=== PATIENT | female | born 1940 | race Caucasian/White ===

== ENCOUNTER → 2023-05-16 | Outpatient (CLI) | payer MEDICARE, BC, SELFPAY ==
[2023-05-16 12:45] LABS: Absolute Lymphocyte Count 1.55 X10^3/uL (0.83-4.51); Absolute Neutrophil Count 4.7 X10^3/uL (2.0-7.7); Basophil# 0.02 X10^3/uL; Basophil% 0.3 % (0-1); Eosinophil# 0.11 X10^3/uL; Eosinophils% 1.6 % (0-5); Hematocrit 41.6 % (37-47); Hemoglobin 13.1 g/dL (12.0-15.0); Lymphocyte # 1.55 X10^3/ul (0.83-4.51); Mean Corp Hgb Conc 31.5 g/dL (32-36); Mean Corpuscular Volume 95.2 fL (81-99); Mean Platelet Vol. 9.7 fl (6.2-12.0); Monocyte# 0.63 X10^3/uL; Monocyte% 8.9 % (0-10); NRBC Flagged by Analyzer 0 % (0-5); Neutrophil # 4.71 X10^3/uL (2.7-7.7); Neutrophil % 66.8 % (47-70); Platelet Count 284 K/mm3 (150-450); RBC Distribution Width CV 12.9 % (11.6-14.6); RBC Distribution Width SD 45.8 fl (35.1-43.9); Red Blood Count 4.37 M/mm3 (4.2-5.4); White Blood Count 7.1 K/mm3 (4.4-11.0)
[2023-05-16 13:18] LABS: AST(SGOT) 15 U/L (15-37); Alanine Aminotransfer ALT/SGPT 21 U/L (13-56); Albumin, Serum 3.7 g/dL (3.2-5.0); Alkaline Phosphatase 78 U/L (45-117); Anion Gap 6 (5-15); BUN 11 mg/dL (7-18); BUN/Creat Ratio 15.6 RATIO (10-20); Chloride 103 mmol/L (98-107); Cholesterol 151 mg/dL (200); EST Glomerular Filtration Rate 84 mL/min (>60); Est Glom Filt Rate - Afr Amer 102 mL/min (>60); Globulin 3.6 g/dL (2.2-4.2); Glucose 109 mg/dL (74-106); High Density Lipoprotein 52 mg/dL; Potassium 3.9 mmol/L (3.5-5.1); Protein, Total 7.3 g/dL (6.4-8.2); Sodium Level 136 mmol/L (136-145); Thyroid Stim Hormone (TSH) 0.26 uIU/mL (0.358-3.74); Triglycerides 215 mg/dL; Very Low Density Lipoprotein 43 mg/dL (5-40)
== END | disposition home or self-care (01) ==
LOC: MFPLAB 10:26
PROVIDERS: PCP Family Medicine; Visit Provider Family Medicine
DX: R73.09 Other abnormal glucose (principal); E78.00 Pure hypercholesterolemia, unspecified; E03.9 Hypothyroidism, unspecified
CPT/HCPCS: 36415; 80053; 80061; 83036; 84443; 85025

== ENCOUNTER → 2023-06-13 | Outpatient (CLI) | payer MEDICARE, BC, SELFPAY ==
--- NOTE | 2023-06-13 07:40 | CT_ITS ---
STUDY: CT CHEST WITH CONTRAST REASON FOR EXAM: Female, 83 years old. Nodules noncalcified on both lungs RADIATION DOSAGE (If Supplied By Facility): CTDIvol = ( 12.15 ) mGy, DLP = ( 282.76 ) mGycm TECHNIQUE: Transaxial imaging was performed following intravenous administration of IV 100mL Isovue-300. Multiplanar coronal and sagittal images were reformatted. Individualized dose optimization techniques were used for this CT. COMPARISON: Comparison is made with prior outside examination dated January 10, 2023. FINDINGS: CHEST Stable small benign-appearing bilateral axillary lymph nodes. Stable 2.5 mm noncalcified nodule in the peripheral lateral aspect of the lingular segment of the left upper lobe as seen on axial image #77. There is no demonstrated pleural abnormality. There are mild calcifications of the coronary arteries. Normal mediastinum. Normal hilar regions. Normal unenhanced pulmonary arteries. There is atherosclerotic calcification of the aortic arch with tortuosity and elongation of the aortic arch and descending thoracic aorta. There are multi-level degenerative changes of the thoracic spine. There is no demonstrated abnormality of the visualized upper abdomen. CT/Chest WITH Contrast IMPRESSION: Stable 2.5 mm noncalcified nodule in the peripheral lateral aspect of the lingular segment of the left upper lobe. 12 month follow-up is recommended. Electronically Signed: Bora Rider MD at 15:14 EDT ,
--- NOTE | 2023-06-14 09:50 | PFT ---
INTRODUCTION: The patient is an 83-year-old female who presents for pulmonary function studies secondary to a diagnosis of abnormal lung findings. Respiratory therapy reported good patient effort. Bronchodilators were used during testing. INTERPRETATION: Forced expiration spirometry demonstrates no evidence of a large airways obstructive ventilatory defect. There was no significant response to aerosolized bronchodilators. Spirograms are of good quality and plateau normally. Body plethysmography was performed and revealed lung volumes to be within normal limits. Diffusing capacity by single breath CO was reduced to 56% of predicted. IMPRESSION: Isolated moderate reduction in diffusing capacity.
== END | disposition home or self-care (01) ==
LOC: CT 07:35
PROVIDERS: PCP Family Medicine; Referring Provider Family Medicine; Visit Provider Family Medicine
DX: R06.02 Shortness of breath (principal)
CPT/HCPCS: 71260; 94060; 94726; 94729; Q9967

== ENCOUNTER → 2023-08-15 | Outpatient (CLI) | payer MEDICARE, BC, SELFPAY ==
[2023-08-15 12:56] LABS: T4 Free Direct 1.14 ng/dL (0.76-1.46); Thyroid Stim Hormone (TSH) 0.27 uIU/mL (0.358-3.74)
== END | disposition home or self-care (01) ==
LOC: MFPLAB 10:27
PROVIDERS: PCP Family Medicine; Visit Provider Family Medicine
DX: E03.9 Hypothyroidism, unspecified (principal)
CPT/HCPCS: 36415; 84439; 84443

== ENCOUNTER → 2023-09-06 | Outpatient (CLI) | payer MEDICARE, BC, SELFPAY ==
--- NOTE | 2023-09-06 16:30 | STRESSREP ---
Stress Test Report Exercise myocardial perfusion stress test. 83-year-old lady with a history of coronary calcification by CTA Stress protocol: Resting EKG demonstrates normal sinus rhythm with a rate of 67 bpm resting blood pressure is 134/86 mmHg. The patient exercised according to the regular Antolin protocol for a total duration of 3 minutes and 15 seconds attaining a maximum heart rate of 122 bpm which was 89% of maximum predicted heart rate; the maximum workload was 5.1 metabolic equivalents. At rest there were no ST or T wave changes noted to suggest ischemia and at peak exercise upsloping ST changes only were noted which did not meet the criteria for ischemia. No clinical angina was noted the test was terminated due to the target heart rate being achieved/fatigue. The peak blood pressure was 160/84 mmHg. Rate-pressure product was 17,400. Myocardial perfusion protocol. 10.8 mCi of technetium 99m sestamibi was injected at rest. The patient exercised according to regular Antolin protocol for total duration of 3 minutes and 15 seconds and at peak exercise 31.9 mCi of technetium 99m sestamibi was injected stress images were obtained stress and rest images were reconstructed in comparing the short axis vertical long and horizontal long axis. Gated images were also obtained. Perfusion SPECT analysis: Review of the stress images demonstrate normal uptake of tracer noted in all areas of the myocardium. The resting images similarly demonstrate normal uptake of tracer noted in all areas of the myocardium. No areas of reversibility are noted to suggest ischemia no previous infarct was noted. Gated SPECT analysis: The gated ejection fraction is 86%. Conclusion: Normal exercise myocardial perfusion stress test at a low to moderate workload Preserved ejection fraction. The low workload could affect sensitivity for detection of ischemia
== END | disposition home or self-care (01) ==
LOC: CVS 07:11
PROVIDERS: PCP Family Medicine; Referring Provider Internal Medicine Cardiovascular Disease; Visit Provider Internal Medicine Cardiovascular Disease
DX: I25.10 Atherosclerotic heart disease of native coronary artery without angina pectoris (principal); I10 Essential (primary) hypertension
CPT/HCPCS: 78452; 93017; A9500; A4216

== ENCOUNTER → 2023-09-08 | Outpatient (CLI) | payer MEDICARE, BC, SELFPAY ==
--- NOTE | 2023-09-08 14:12 | CT_ITS ---
EXAM: CT ANGIOGRAPHY HEAD AND NECK WITHOUT AND WITH INTRAVENOUS CONTRAST CLINICAL INDICATION: R ICA stenosis TECHNIQUE: Lummi of [place]/head and neck CT angiography protocol performed without and with intravenous contrast. This CT exam was performed using one or more of the following dose reduction techniques: automated exposure control, adjustment of the mA and/or kV according to patient size, and/or use of iterative reconstruction technique. MIP reconstructed images were created and reviewed. CONTRAST: 100 cc of Isovue-370 IV. RADIATION DOSE: CTDIvol = 29.33 mGy, DLP = 1411.38 mGy-cm COMPARISON: No relevant prior studies available. FINDINGS: HEAD: RIGHT ANTERIOR CEREBRAL ARTERY: Unremarkable. No occlusion or significant stenosis. Anterior communicating artery is present. No aneurysm. RIGHT MIDDLE CEREBRAL ARTERY: Unremarkable. No occlusion or significant stenosis. No aneurysm. RIGHT POSTERIOR CEREBRAL ARTERY: Unremarkable. No occlusion or significant stenosis. No aneurysm. RIGHT INTRACRANIAL INTERNAL CAROTID ARTERY: Mild atherosclerotic changes right intracavernous internal carotid artery without hemodynamic significant stenosis. No dissection or occlusion. RIGHT INTRACRANIAL VERTEBRAL ARTERY: Unremarkable. No significant stenosis. No dissection or occlusion. LEFT ANTERIOR CEREBRAL ARTERY: Unremarkable. No occlusion or significant stenosis. No aneurysm. LEFT MIDDLE CEREBRAL ARTERY: Unremarkable. No occlusion or significant stenosis. No aneurysm. LEFT POSTERIOR CEREBRAL ARTERY: Unremarkable. No occlusion or significant stenosis. No aneurysm. LEFT INTRACRANIAL INTERNAL CAROTID ARTERY: Mild atherosclerotic changes left intracavernous internal carotid artery without hemodynamic significant stenosis. No dissection or occlusion. LEFT INTRACRANIAL VERTEBRAL ARTERY: Unremarkable. No significant stenosis. No dissection or occlusion. BASILAR ARTERY: Unremarkable. No occlusion or significant stenosis. No aneurysm. OTHER VASCULATURE: No vascular malformation. BRAIN AND EXTRA-AXIAL SPACES: Mild generalized atrophy. Mild low density bilaterally in the deep white matter. No intra- or extra-axial hemorrhage. No evidence of acute infarct. No intracranial mass or mass effect. There is preservation of the dixon/white matter interface. Posterior fossa structures are unremarkable. No hydrocephalus. Basal cisterns are patent. SINUSES: Unremarkable as visualized. Clear. MASTOID AIR CELLS: Unremarkable as visualized. Clear. ORBITS: Visualized globes, extraocular muscles, optic nerves and retrobulbar fat appear unremarkable. NECK: RIGHT COMMON CAROTID ARTERY: Unremarkable. No significant stenosis. No dissection or occlusion. RIGHT EXTRACRANIAL INTERNAL CAROTID ARTERY: Severe atherosclerotic disease right carotid bulb and proximal right internal carotid artery with a 70% diameter stenosis. No dissection or occlusion. RIGHT EXTERNAL CAROTID ARTERY: Unremarkable. No occlusion. RIGHT EXTRACRANIAL VERTEBRAL ARTERY: Unremarkable. No significant stenosis. No dissection or occlusion. LEFT COMMON CAROTID ARTERY: Unremarkable. No significant stenosis. No dissection or occlusion. LEFT EXTRACRANIAL INTERNAL CAROTID ARTERY: Moderate atherosclerotic calcifications left carotid bulb and proximal left internal carotid artery with an approximate 25% diameter stenosis. No dissection or occlusion. LEFT EXTERNAL CAROTID ARTERY: Unremarkable. No occlusion. LEFT EXTRACRANIAL VERTEBRAL ARTERY: Unremarkable. No significant stenosis. No dissection or occlusion. BRACHIOCEPHALIC AND SUBCLAVIAN ARTERIES: Unremarkable as visualized. No occlusion or significant stenosis. LUNG APICES: Unremarkable as visualized. HEAD and NECK: BONES/JOINTS: Unremarkable. No discrete lytic or blastic abnormalities. SOFT TISSUES: Unremarkable. OTHER FINDINGS: Diffuse degenerative disease in the cervical spine. CAROTID STENOSIS REFERENCE USING NASCET CRITERIA: % ICA stenosis = (1 - narrowest ICA diameter/diameter of distal cervical ICA) x 100. Mild - <50% stenosis. Moderate - 50-69% stenosis. Severe - 70-94% stenosis. Near occlusion - 95-99% stenosis. Occluded - 100% stenosis. CT/CTA Head AND Neck W/ Contrast IMPRESSION: 1. Severe atherosclerotic disease right carotid bulb and proximal right internal carotid artery with a 70% diameter stenosis. 2. Moderate atherosclerotic calcifications left carotid bulb and proximal left internal carotid artery with an approximate 25% diameter stenosis. 3. Mild atherosclerotic changes right intracavernous internal carotid artery without hemodynamic significant stenosis. 4. Mild atherosclerotic changes left intracavernous internal carotid artery without hemodynamic significant stenosis. 5. Mild generalized atrophy. Mild low density bilaterally in the deep white matter. This likely represents chronic small vessel ischemic changes in the deep white matter. Electronically Signed: Bravo Steen MD at 5:42 EST ,
[2023-09-08 14:48] LABS: CREATININE FINGERSTICK < 1.0 mg/dL (0.55-1.02); EGFR FINGERSTICK > 60.0000 mL/min (>60)
== END | disposition home or self-care (01) ==
LOC: CT 14:11
PROVIDERS: PCP Family Medicine; Referring Provider Physician Assistant; Visit Provider Physician Assistant
DX: I65.21 Occlusion and stenosis of right carotid artery (principal)
CPT/HCPCS: 70496; 70498; Q9967

== ENCOUNTER 2023-10-17 10:21 | Inpatient (IN) | payer MEDICARE, BC, SELFPAY ==
[2023-10-06 09:09] LABS: Hemoglobin 13.8 g/dL (12.0-15.0); Mean Corp Hgb Conc 32.9 g/dL (32-36); Mean Corpuscular Hgb 30.9 pg (27.0-32.0); Mean Platelet Vol. 9.2 fl (6.2-12.0); Platelet Count 302 K/mm3 (150-450); RBC Distribution Width CV 12.7 % (11.6-14.6); RBC Distribution Width SD 43.4 fl (35.1-43.9); Red Blood Count 4.47 M/mm3 (4.2-5.4); White Blood Count 5.8 K/mm3 (4.4-11.0)
[2023-10-06 10:35] LABS: Anion Gap 9 (5-15); BUN 11 mg/dL (7-18); BUN/Creat Ratio 16.4 RATIO (10-20); Calcium,Total 9.2 mg/dL (8.5-10.1); Chloride 102 mmol/L (98-107); Creatinine, Serum 0.67 mg/dL (0.55-1.02); EST Glomerular Filtration Rate 89 mL/min (>60); Est Glom Filt Rate - Afr Amer 108 mL/min (>60); Glucose 110 mg/dL (74-106); Potassium 4.3 mmol/L (3.5-5.1); Sodium Level 136 mmol/L (136-145)
[2023-10-06 10:51] LABS: Thyroid Stim Hormone (TSH) 0.08 uIU/mL (0.358-3.74)
[2023-10-17] VITALS (26 sets, daily range): BP systolic 89–144; BP diastolic 50–91; PULSE 74–101; RESP 12–22; TEMP 36–37.1; O2SAT 87–100; BMI 28.3; BMI 29.1
[2023-10-17] MEDS: Lactated Ringers 1,000 ML 15 ML IV (07:24)
--- NOTE | 2023-10-17 08:49 | HP.PCM_ITS ---
HPI - General HPI Narrative SCOTTY LOERA, is a 83 F who presents with asymptomatic right carotid stenosis. [facility] Medical History Alcohol use Anxiety Arthritis Cardiology follow-up encounter Essential (primary) hypertension Generalized anxiety disorder GERD (gastroesophageal reflux disease) High cholesterol History of echocardiogram History of irregular heartbeat History of stress test Hypercholesterolemia Hypothyroid Migraine headache Thyroid disease Wears glasses Wears partial dentures Home Medications Lactobacillus rhamnosus GG 10 billion cell capsule (Culturelle) 1 cap PO DAILY 07/06/23 [History Last Taken Unknown] cholecalciferol (vitamin D3) 75 mcg (3,000 unit) tablet 5,000 unit PO DAILY 07/06/23 [History Last Taken Unknown] cinnamon bark 500 mg capsule (Cinnamon) 1,000 mg PO DAILY 07/06/23 [History Last Taken Unknown] coenzyme Q10 200 mg capsule (Co Q-10) 200 mg PO DAILY 07/06/23 [History Last Taken Unknown] famotidine 20 mg tablet (Acid Knowledge Engineer (famotidine)) 20 mg PO DAILY 07/06/23 [History Last Taken Unknown] magnesium 200 mg tablet 400 mg PO DAILY 07/06/23 [History Last Taken Unknown] multivitamin 1 tab PO DAILY 07/06/23 [History Last Taken Unknown] vitamin B complex-folic acid 0.4 mg tablet (Super B Maxi Complex) 1 tab PO DAILY 07/06/23 [History Last Taken Unknown] vitamins A,C,Y-awej-kxysed 4,296 mcg-226 mg-90 mg capsule (PreserVision AREDS) 1 cap PO BID 07/06/23 [History Last Taken Unknown] albuterol sulfate 2.5 mg/3 mL (0.083 %) solution for nebulization 2.5 mg continuous nebulization Q8H PRN cough 07/26/23 [History Last Taken Unknown] amitriptyline 10 mg tablet 10 mg PO BID 07/26/23 [History Last Taken Unknown] levothyroxine 88 mcg tablet 88 mcg PO DAILY 07/26/23 [History Last Taken Unknown] rosuvastatin 5 mg tablet 5 mg PO DAILY 08/16/23 [History Last Taken Unknown] perphenazine 2 mg tablet 2 mg PO BID 08/29/23 [History Last Taken Unknown] aspirin 81 mg tablet,delayed release 81 mg PO DAILY 09/14/23 [History Last Taken 10/16/23] rosuvastatin 5 mg tablet 5 mg PO DAILY 09/14/23 [History Last Taken Unknown] ticagrelor 90 mg tablet (Brilinta) 90 mg PO Q12H #60 tabs 09/14/23 [Rx Last Taken 10/17/23] turmeric 100 mg-lyndsey 150 mg-olive 50 mg-oreg 150 mg-capryl capsule cap PO 09/14/23 [History Last Taken Unknown] krill oil 500 mg capsule 500 mg PO DAILY 10/04/23 [History Last Taken Unknown] Allergy/AdvReac Type Severity Reaction Status Date / Time Penicillins Allergy Severe Swelling Verified 10/17/23 07:17 bee venom protein (honey bee) Allergy Swelling Verified 10/17/23 07:17 Family History Grandmother CVA (cerebral vascular accident) Obesity Arthritis Uncle Diabetes Father Cancer Arthritis Obesity Brother Arthritis Alcoholism Surgical History H/O tubal ligation History of cholecystectomy History of hysterectomy Social History Smoking Status: Former smoker ROS Constitutional Constitutional: Denies chills, fever(s), frequent falls, lethargy or weakness Eyes Eyes: Denies blind spots, change in vision or loss of vision ENT HEENT: Denies bleeding gums, hoarseness or sore throat Cardiovascular Cardiovascular: Denies abdominal pain, bluish discoloration of hand/feet, chest pain with activity, claudication, cold extremities, cyanosis, dyspnea on exert ion, erythema on extremities, irregular heart rhythm, leg edema, leg ulcers, numbness in extremities or weakness in extremities Respiratory/Chest Respiratory/Chest: Denies cough, excessive phlegm production, shortness of breath at rest, shortness of breath with exertion or wheezing Gastrointestinal Gastrointestinal: Denies anorexia, change in stool character, constipation, diarrhea, melena or rectal bleeding Genitourinary Genitourinary: Denies dysuria or hematuria Musculoskeletal Musculoskeletal: Denies abnormal gait Integumentary Integumentary: Reports other Details: ; Denies erythema, non-healing lesions or wounds Neurologic Neurologic: Denies abnormal speech, focal weakness, headache(s), loss of vision, numbness, paresthesias or sensory deficit Hematologic/Lymphatic Hematologic/Lymphatic: Denies easy bleeding, easy bruising or lymphadenopathy Vital Signs Vital Signs Vital Signs: 10/17/23 07:18 10/17/23 07:18 Temperature 97.6 F L Temperature Source Temporal Pulse Rate 91 Respiratory Rate 18 Respiratory Pattern Normal Blood Pressure 120/80 Blood Pressure Mean 93 Blood Pressure Source Monitor Blood Pressure Position Semi-Fowlers Blood Pressure Location Left Arm Pulse Ox 99 Oxygen Delivery Method Room Air Weight Weight: 154 lb 12.232 oz Body Mass Index (BMI) 28.3 Results Lab / Micro Data 10/06/23 08:16 10/06/23 08:16 Assessment & Plan Assessment/Plan (1) Carotid artery stenosis, unilateral: PLAN: -TCAR
--- NOTE | 2023-10-17 10:19 | PCM.OPRPT ---
Report of Operation Date of Procedure: 10/17/23 Pre-Operative Diagnosis: right carotid stenosis Post-Operative Diagnosis: same Surgery/Procedure Performed:: right carotid artery stent, trans-carotid Surgeon: Darrin Gaviria Type of Anesthesia: General Drains: 19 Fr SHIRIN Estimated Blood Loss (mL): 10 Description of Procedure: HPI: Patient is an 83-year-old female with asymptomatic severe right internal carotid artery stenosis with a lesion that is particularly lengthy in nature. She is felt to be appropriate for transcarotid artery stenting so she is taken now for elective right carotid stent for stroke risk reduction and prevention. Description of procedure: Upon obtaining form consent and verification correct patient procedure site patient taken to [facility] where she was placed under general anesthesia. She is then positioned prepped and draped you sterile fashion timeout was performed. Transverse incision made 1 fingerbreadth superior to the right clavicle and Bovie left cautery was dissect down through subcutaneous tissue. The platysma was then divided and self-retaining tractor put in position after which the sternocleidomastoid mobilized laterally exposing the carotid sheath. Sharp dissection then used to dissect free the jugular vein along its anterior border was then retracted laterally exposing the common carotid artery. Sharp dissection to dissect free proximally circumferentially around was placed vessel loop. Patient was then administered heparin allowed circuit for 3 minutes after which serial ACT's were performed to confirm adequate anticoagulation. A 5-0 Prolene pursestring suture was then placed in the mid common carotid artery at the location of her intended access. Ultrasound guidance the right common femoral vein was accessed in retrograde fashion with micropuncture needle wire. This was exchanged out for micropuncture sheath through which a J-wire was advanced the micropuncture sheath exchanged for the [address] venous return sheath. This was then sutured to secured into position with heparinized saline. Next the common carotid artery was accessed in antegrade fashion with a micropuncture needle wire which was then exchanged out from a puncture sheath. Through the micropuncture sheath hand-injection carotid angiogram was performed revealing satisfactory positioning in the location of the carotid bifurcation. Through the micropuncture sheath the microwire and dilator then readvanced and navigated into the external carotid artery. The wire and dilator withdrawn and the short J-wire was advanced through the sheath and the sheath withdrawn. An 8 [place] dilator was then used to dilate the vessel wall followed by the [address] sheath. The flow reversal apparatus was then helped up and adequate flow reversal confirmed. Multiple oblique images were then obtained to confirm satisfactory sheath placement and confirm no evidence of dissection as well as to rip the anatomic landmarks both of the bifurcation and the plaque.. Common carotid artery then occluded with Vesseloops proximal to the flow reversal sheath after which the 014 wire was used to navigate across the internal carotid artery lesion advancing into the distal cervical internal carotid artery. A 4 x 25 angioplasty balloon was advanced and to the internal carotid artery, centered at the lesion and inflated to nominal for 15 seconds then deflated and withdrawn. A [address] en route stent was then advanced in the position and deployed. Completion angiography confirmed satisfactory position with no extravasation dissection and no residual stenosis. There is also confirmation of satisfactory stent wall apposition. 2 minutes of flow reversal was then performed after which the common carotid artery was released. No further 1 minute of flow reversal was allowed to after which the flow reversal tubing was detached and the blood returned via the femoral sheath. Patient was then reversed with protamine and the femoral vein sheath withdrawn followed by 5 minutes of manual pressure. The carotid sheath was then withdrawn as the pursestring suture was secured with satisfactory stasis at the completion. The vessel was then interrogated Doppler found patent low resistance signal. Patient was reversed with protamine and again the vessel assessed and found to be patent with low resistance signal. The incision inspected hemostasis and hemoblast topical hemostatic applied after which a [address] SHIRIN was placed via separate stab incision the incision was then closed with 3-0 Vicryl for Monocryl. Patient was then awake from anesthesia moving all extremities command after which she was taken the recovery before admission to the intensive care unit for hemodynamic neurologic monitoring. Grafts/Implants Used: 9x40 En route stent
[2023-10-17] MEDS: 0.9% Normal Saline (1000mL) 1,000 ML 75 ML IV (13:16)
[2023-10-17] MEDS: 0.9% Saline Lock 10 ML Syringe IV (13:18)
[2023-10-17] MEDS: Clindamycin 600 MG/50 ML BAG 100 MG IV ×2 (13:18→21:21)
[2023-10-17] MEDS: Acetaminophen 500 MG Tablet 1000 MG PO ×2 (13:21→21:14)
[2023-10-17 15:06] LABS: ACT Activated Clotting Time 147 sec (74-137)
[2023-10-17 15:06] LABS: ACT Activated Clotting Time 320 sec (74-137)
[2023-10-17] MEDS: TICAGRELOR 90 MG TABLET PO (21:12)
[2023-10-17] MEDS: Amitriptyline 10 MG Tablet PO (21:15)
[2023-10-17] MEDS: Multivitamin (Healthy Eyes) Capsule 1 CAP PO (21:15)
[2023-10-18] VITALS (9 sets, daily range): BP systolic 93–133; BP diastolic 50–59; PULSE 70–99; RESP 11–20; TEMP 36.3–36.6; O2SAT 92–97; BMI 28.6
[2023-10-18 03:21] LABS: Absolute Lymphocyte Count 0.81 X10^3/uL (0.83-4.51); Absolute Neutrophil Count 8.8 X10^3/uL (2.0-7.7); Hematocrit 31.9 % (37-47); Hemoglobin 10.6 g/dL (12.0-15.0); Lymphocyte # 0.81 X10^3/ul (0.83-4.51); Lymphocyte % 7.9 % (19-41); Mean Corp Hgb Conc 33.2 g/dL (32-36); Mean Corpuscular Hgb 29.9 pg (27.0-32.0); Mean Corpuscular Volume 90.1 fL (81-99); Mean Platelet Vol. 9.1 fl (6.2-12.0); Monocyte# 0.62 X10^3/uL; NRBC Flagged by Analyzer 0 % (0-5); Neutrophil # 8.79 X10^3/uL (2.7-7.7); Neutrophil % 85.6 % (47-70); Platelet Count 271 K/mm3 (150-450); RBC Distribution Width CV 12.7 % (11.6-14.6); RBC Distribution Width SD 41.9 fl (35.1-43.9); Red Blood Count 3.54 M/mm3 (4.2-5.4); White Blood Count 10.3 K/mm3 (4.4-11.0)
[2023-10-18] MEDS: Levothyroxine 88 MCG Tablet PO (05:20)
[2023-10-18] MEDS: Acetaminophen 500 MG Tablet 1000 MG PO (05:22)
[2023-10-18] MEDS: Clindamycin 600 MG/50 ML BAG 100 MG IV (05:23)
--- NOTE | 2023-10-18 08:35 | PCM.PN.SRG ---
Subjective Subjective Patient was seen sitting comfortably in bed, eating breakfast. She reports she is feeling good, denies any MORTENSEN, vision changes, weakness, difficulty swallowing, difficulty speaking or hoarseness. She denies any significant pain at the incision site or the R groin access site. She has been up and down using the bedside commode without issue. She is tolerating diet well. She has been hemodynamically stable. She is eager to go home. Objective Data Objective Data Vital Signs: Vital Signs Temp Pulse Resp BP Pulse Ox O2 Del Method O2 Flow Rate 97.9 F 97 19 H 107/59 L 95 Nasal Cannula 2 10/18/23 04:00 10/18/23 06:00 10/18/23 06:00 10/18/23 06:00 10/18/23 06:00 10/18/23 06:00 10/18/23 06:00 Oxygen Flow Rate (L/min) 2 Oxygen Delivery Method Nasal Cannula Weight: 156 lb 8.451 oz Body Mass Index (BMI) 28.6 Intake & Output: Intake and Output for Last 24 Hours 10/16/23 10/17/23 10/18/23 23:59 23:59 23:59 Intake Total 800 / 800 Output Total 1565 / 1565 1100 / 1100 Balance 447.00 / 447.00 -300 / -300 Lab / Micro Data 10/18/23 03:15 10/06/23 08:16 Labs: Laboratory Results - last 24 hr 10/17/23 08:50: Activated Clotting Time 147 H 10/17/23 09:26: Activated Clotting Time 320 H 10/18/23 03:15: WBC 10.3, RBC 3.54 L, Hgb 10.6 L, Hct 31.9 L, MCV 90.1, MCH 29.9, MCHC 33.2, RDW Std Deviation 41.9, RDW Coeff of Kerrie 12.7, Plt Count 271, MPV 9.1, Immature Gran % (Auto) 0.500, Neut % (Auto) 85.6 H, Lymph % (Auto) 7.9 L, Amelia % (Auto) 6.0, Eos % (Auto) 0.0, Baso % (Auto) 0.0, Absolute Neuts (auto) 8.8 H, Absolute Lymphs (auto) 0.81 L, Nucleated RBC % 0 Physical Exam Const alert, oriented x3 and no apparent distress General Appearance: cooperative and comfortable HEENT normocephalic, head/scalp atraumatic, hearing grossly normal bilaterally, external ears normal and external nose normal Eyes EOMs intact bilaterally General Eye: normal appearance of both eyes Neck Neck Narrative: R neck incision site with surgical glue intact. Mild bruising. No dehiscence, drainage, redness, swelling. Resp normal respiratory effort and no use of accessory muscles Effort and Inspection: able to speak in complete sentences; Negative for labored, stridor, retractions or audible wheezes Cardio regular rate and regular rhythm Extremity no clubbing, cyanosis or edema Extremity Narrative: R groin access site with mild surrounding ecchymosis. No swelling/hematoma, erythema, warmth, drainage. Skin no rashes or lesions noted Skin Narrative: Ecchymosis R upper arm where blood pressure cuff was located Trauma: no lacerations or abrasions Neuro oriented x3, CN's II-XII intact bilaterally, moves all extremities, no focal motor deficits and no sensory deficits noted Speech: speech normal Motor Exam: strength 5/5 throughout Psych Appearance: grossly normal Attitude: calm and engaged Activity / Motor Behavior: appropriate eye contact Speech: normal speech Mood & Affect: euthymic mood Judgement: judgement good Assessment & Plan Assessment/Plan (1) Carotid artery stenosis, unilateral: PLAN: She is s/p R TCAR on 10/17/22. SHIRIN drain was removed without issue. Her blood pressures have been stable overnight and this morning, at her baseline. She is tolerating a normal diet. She has been voiding and ambulating without difficulty. Her pain is well controlled. She is on 2L O2 which was started overnight. Will wean as tolerated. Anticipate discharge home today.
--- NOTE | 2023-10-18 08:46 | PCM.DC.SUM ---
Providers Date of Admission: 10/17/23 Primary Care Physician: Richy Blount MD Reason For Visit: RIGHT Occlusion and stenosis of unspecified carot Diagnosis Discharge Diagnosis (1) Carotid artery stenosis, unilateral: Status: Acute Code(s): I65.29 - Occlusion and stenosis of unspecified carotid artery Plan: She is s/p R TCAR on 10/17/22. SHIRIN drain was removed without issue. Her blood pressures have been stable overnight and this morning, at her baseline. She is tolerating a normal diet. She has been voiding and ambulating without difficulty. Her pain is well controlled. She is on 2L O2 which was started overnight. Will wean as tolerated. Anticipate discharge home today. Medications at Discharge Home Medications Lactobacillus rhamnosus GG 10 billion cell capsule (Culturelle) 1 cap PO DAILY 07/06/23 cholecalciferol (vitamin D3) 75 mcg (3,000 unit) tablet 5,000 unit PO DAILY 07/06/23 cinnamon bark 500 mg capsule (Cinnamon) 1,000 mg PO DAILY 07/06/23 coenzyme Q10 200 mg capsule (Co Q-10) 200 mg PO DAILY 07/06/23 famotidine 20 mg tablet (Acid Poultry Farmer Meat (famotidine)) 20 mg PO DAILY 07/06/23 magnesium 200 mg tablet 400 mg PO DAILY 07/06/23 multivitamin 1 tab PO DAILY 07/06/23 vitamin B complex-folic acid 0.4 mg tablet (Super B Maxi Complex) 1 tab PO DAILY 07/06/23 vitamins A,C,L-hzcs-csrgqd 4,296 mcg-226 mg-90 mg capsule (PreserVision AREDS) 1 cap PO BID 07/06/23 albuterol sulfate 2.5 mg/3 mL (0.083 %) solution for nebulization 2.5 mg continuous nebulization Q8H PRN cough 07/26/23 amitriptyline 10 mg tablet 10 mg PO BID 07/26/23 levothyroxine 88 mcg tablet 88 mcg PO DAILY 07/26/23 rosuvastatin 5 mg tablet 5 mg PO DAILY 08/16/23 perphenazine 2 mg tablet 2 mg PO BID 08/29/23 aspirin 81 mg tablet,delayed release 81 mg PO DAILY 09/14/23 ticagrelor 90 mg tablet (Brilinta) 90 mg PO Q12H #60 tabs 09/14/23 turmeric 100 mg-lyndsey 150 mg-olive 50 mg-oreg 150 mg-capryl capsule cap PO 09/14/23 krill oil 500 mg capsule 500 mg PO DAILY 10/04/23 Hospital Course Operations - (R TCAR) Summary of Care Provided Hospital Course: Mrs. Winter Cornejo is an 83-year-old female who underwent right transcarotid revascularization on 10/17/2023. She tolerated the procedure well. Postoperatively, she was routinely admitted to the ICU for hemodynamic and neurologic monitoring. She has remained neurologically and hemodynamically stable throughout her admission. She is without any signs or symptoms of stroke or hyperperfusion syndrome. She is tolerating a normal diet, voiding without difficulty, ambulating well, and her pain is well-controlled. Her SHIRIN drain was removed on postop day 1 without issue. The right neck incision site in the right groin access site are satisfactory in appearance. She is discharged home today in medically stable condition. She will continue with her Brilinta 90 mg twice daily for 30 days more in addition to aspirin 81 mg daily. She is scheduled for follow-up in the office on 11/07/2023. Physical Exam Const alert, oriented x3 and no apparent distress General Appearance: cooperative and comfortable HEENT normocephalic, head/scalp atraumatic, hearing grossly normal bilaterally, external ears normal and external nose normal Eyes EOMs intact bilaterally General Eye: normal appearance of both eyes Neck Neck Narrative: R neck incision site with surgical glue intact. Mild bruising. No dehiscence, drainage, redness, swelling. Resp normal respiratory effort and no use of accessory muscles Effort and Inspection: able to speak in complete sentences; Negative for labored, stridor, retractions or audible wheezes Cardio regular rate and regular rhythm Extremity no clubbing, cyanosis or edema Extremity Narrative: R groin access site with mild surrounding ecchymosis. No swelling/hematoma, erythema, warmth, drainage. Skin no rashes or lesions noted Skin Narrative: Ecchymosis R upper arm where blood pressure cuff was located Trauma: no lacerations or abrasions Neuro oriented x3, CN's II-XII intact bilaterally, moves all extremities, no focal motor deficits and no sensory deficits noted Speech: speech normal Motor Exam: strength 5/5 throughout Psych Appearance: grossly normal Attitude: calm and engaged Activity / Motor Behavior: appropriate eye contact Speech: normal speech Mood & Affect: euthymic mood Judgement: judgement good Weight / BMI Weight Weight: 156 lb 8.451 oz Body Mass Index (BMI) 28.6 ABG / Lab / Microbiology Data 10/18/23 03:15 10/06/23 08:16 Laboratory: Laboratory Results - last 24 hr 10/17/23 08:50: Activated Clotting Time 147 H 10/17/23 09:26: Activated Clotting Time 320 H 10/18/23 03:15: WBC 10.3, RBC 3.54 L, Hgb 10.6 L, Hct 31.9 L, MCV 90.1, MCH 29.9, MCHC 33.2, RDW Std Deviation 41.9, RDW Coeff of Kerrie 12.7, Plt Count 271, MPV 9.1, Immature Gran % (Auto) 0.500, Neut % (Auto) 85.6 H, Lymph % (Auto) 7.9 L, [place] % (Auto) 6.0, Eos % (Auto) 0.0, Baso % (Auto) 0.0, Absolute Neuts (auto) 8.8 H, Absolute Lymphs (auto) 0.81 L, Nucleated RBC % 0 D/C Instructions Discharge Diet: No restrictions May shower in (days): 1 Weight Bearing Status: Weight bearing as tolerated Lifting Restricted to (Lbs): 20 Lifting Restrictions: Do not lift more than 20 pounds for 3 weeks Call your doctor if your incision/area has: Sudden Increased Bleeding, Increased Pain/ Swelling and Foul Smelling Discharge Call your doctor if you observe: Fever of 101 or Higher and Uncontrolled pain Additional Instructions: You have a small bandage over the site from which the surgical drain was removed. You may remove this bandage tomorrow. As long as there is no residual drainage, you may leave this open to air. If you do notice some continued drainage, you may re-cover with a Band-Aid. There is a dry dressing over the right groin access site. You may remove this dressing tomorrow as well and then you may leave this open to air. Your incision site is covered with surgical glue which will continue to protect it. The surgical glue will peel/flake off on its own over the next few weeks. Please do not pick at it. You may shower tomorrow. It is okay for soap and water to rinse over the incision site, pat to dry. Do not submerge the incision site in water such as to take a bath or go swimming etc. for 3 weeks. Do not lift greater than 20 pounds for 3 weeks. Otherwise, please continue with activity as tolerated. Do not drive until you can turn your head well enough to safely check your blind spots. Continue to take Brilinta 90 mg by mouth twice daily for 30 days, the end date will be 11/16/2023. Continue to take aspirin 81 mg daily as well. You declined prescription pain medication. Please continue to take Tylenol as needed for pain. Your follow-up appointment is currently scheduled for 11/07/2023. Please call the office at [phone] if you need to make any changes to your appointment or if you have any questions or concerns. Please Follow Up With: Ledy Toussaint PA When: 11/07/23 Meaningful Use Info Meaningful Use Diagnoses (Choose all that apply): None applicable Discharge Plan Admission Admit Date/Time: 10/17/23 10:21 Primary Reason for Your Visit: R Carotid Stent Attending Provider: Darrin Gaviria Primary Care Provider: Richy Blount Instructions Additional Instructions / Restrictions: You have a small bandage over the site from which the surgical drain was removed. You may remove this bandage tomorrow. As long as there is no residual drainage, you may leave this open to air. If you do notice some continued drainage, you may re-cover with a Band-Aid. There is a dry dressing over the right groin access site. You may remove this dressing tomorrow as well and then you may leave this open to air. Your incision site is covered with surgical glue which will continue to protect it. The surgical glue will peel/flake off on its own over the next few weeks. Please do not pick at it. You may shower tomorrow. It is okay for soap and water to rinse over the incision site, pat to dry. Do not submerge the incision site in water such as to take a bath or go swimming etc. for 3 weeks. Do not lift greater than 20 pounds for 3 weeks. Otherwise, please continue with activity as tolerated. Do not drive until you can turn your head well enough to safely check your blind spots. Continue to take Brilinta 90 mg by mouth twice daily for 30 days, the end date will be 11/16/2023. Continue to take aspirin 81 mg daily as well. You declined prescription pain medication. Please continue to take Tylenol as needed. Your follow-up appointment is currently scheduled for 11/07/2023. Please call the office at [phone] if you need to make any changes to your appointment or if you have any questions or concerns. Discharge Orders/Prescriptions Prescriptions: Continued famotidine [Acid Poultry Farmer Meat (famotidine)] 20 mg tablet 20 mg PO DAILY multivitamin Tablet 1 tab PO DAILY PreserVision AREDS 4,296 mcg-226 mg-90 mg capsule 1 cap PO BID cholecalciferol (vitamin D3) 75 mcg (3,000 unit) tablet 5,000 unit PO DAILY cinnamon bark [Cinnamon] 500 mg capsule 1,000 mg PO DAILY vitamin B complex-folic acid [Super B Maxi Complex] 0.4 mg tablet 1 tab PO DAILY coenzyme Q10 [Co Q-10] 200 mg capsule 200 mg PO DAILY Culturelle 10 billion cell capsule 1 cap PO DAILY magnesium 200 mg tablet 400 mg PO DAILY levothyroxine 88 mcg tablet 88 mcg PO DAILY amitriptyline 10 mg tablet 10 mg PO BID albuterol sulfate 2.5 mg /3 mL (0.083 %) solution for nebulization 2.5 mg continuous nebulization Q8H PRN (Reason: cough) Patient Comments: USE 1 VIAL IN NEBULIZER THREE TIMES DAILY perphenazine 2 mg tablet 2 mg PO BID aspirin 81 mg tablet,delayed release (DR/EC) 81 mg PO DAILY Brilinta 90 mg tablet 90 mg PO Q12H Qty: 60 0RF krill oil 500 mg capsule 500 mg PO DAILY rosuvastatin 5 mg tablet 5 mg PO DAILY Discontinued rosuvastatin 5 mg tablet 5 mg PO DAILY Other Ambulatory Orders: 12 Lead EKG (Routine) Timeframe: [id number] Location: None Selected Ordered By: Dr. Geovanny Bolivar Referrals / Follow Up: Richy Blount MD [Primary Care Provider] - Disposition Disposition (needs filled in before D/C Order can be placed): Home, Self Care
[2023-10-18] MEDS: Multivitamins,Therapeutic Tablet 1 TABLET PO (08:54)
[2023-10-18] MEDS: Aspirin E.C. 81 MG Tablet PO (08:55)
[2023-10-18] MEDS: Vitamin B Comp W-C Capsule 1 CAP PO (08:55)
[2023-10-18] MEDS: TICAGRELOR 90 MG TABLET PO (08:55)
[2023-10-18] MEDS: Amitriptyline 10 MG Tablet PO (08:55)
[2023-10-18] MEDS: Atorvastatin Calcium 10 MG Tablet PO (08:57)
[2023-10-18] MEDS: Famotidine 20 MG Tablet PO (08:57)
[2023-10-18] MEDS: Enoxaparin 40 MG/0.4 ML Syringe SC (08:57)
[2023-10-18] MEDS: Magnesium Chloride 64 MG Delay Rel.Tablet 128 MG PO (08:57)
[2023-10-18] MEDS: Multivitamin (Healthy Eyes) Capsule 1 CAP PO (10:08)
[2023-10-18] MEDS: Cholecalciferol (Vit D3) 125 MCG CAPSULE (5,000 UNITS) PO (10:08)
--- NOTE | 2023-10-18 10:40 | CASEMGMT ---
BERNY MCCOY Assessment: Face to Face with pt for initial transition planning/care coordination assessment. BERNY MCCOY introduced self and role at [facility], pt voices understanding and consents to assessment. Pt is A&O x4 and answers all questions appropriately at this time. Pt sitting up in chair on room air in no distress. Care providers, pharmacy, and demographics verified/updated. Admitting Dx:R occlusion and stenosis of carotid artery PCP:[facility]:rickey Gaviria; Jessica cardio [facility]erred [facility] Prescription Benefit: yes LNOK:Abelino Cornejo, Living Arrangements: Pt lives with in a single story home with 2 steps to enter with a rail. Pt reports she was I in ADL's prior to surgery. Pt reports she has meals in her freezer in preparation for her surgery. Pt denies concerns at home. Transportation: Pt drives self and denies concerns with transportation. Pt will transport pt until she becomes more comfortable to drive post surgery. DME:[facility]- pt does not use AD HHC/SNF:Denies hx of Pt states no concerns with going home at time of dc. Pt states no further concerns/needs. CM to follow. Advised pt to ask CM if any further question/concerns/needs arise, voices understanding. Pt Goal:Home Plan:Home
== END 2023-10-18 12:13 | disposition home or self-care (01) | DRG 36 ==
LOC: SDC 12:21 → ICU 12:21
PROVIDERS: Anesthesiology; Admitting Provider Surgery Trauma Surgery; PCP Family Medicine; Referring Provider Surgery Trauma Surgery; Visit Provider Surgery Trauma Surgery
PROC: 037K34Z Dilation of Right Internal Carotid Artery with Drug-eluting Intraluminal Device, Percutaneous Approach (ICD-10-PCS; CPT 37236; principal; 2023-10-17 07:00)
DX: I65.21 Occlusion and stenosis of right carotid artery (principal); E78.00 Pure hypercholesterolemia, unspecified; I10 Essential (primary) hypertension; Z87.891 Personal history of nicotine dependence
CPT/HCPCS: 36415; 37215; 76937; 80048; 84443; 85025; 85027; 85347; 86850; 86900; 86901; 93005; 94668; 99252; A4648; C1769; C1884; C1894; J7030; J7120; Q9967; A4216; C1876; G0463; J2405

== ENCOUNTER 2023-10-19 09:33 | Emergency (ER) | payer MEDICARE, BC, SELFPAY ==
[2023-10-19 09:34] VITALS: BP 172/79; PULSE 70; RESP 20; TEMP 35.7; O2SAT 93; BMI 28.7
--- NOTE | 2023-10-19 09:55 | EKG12_ITS ---
Test Reason : SOB Blood Pressure : / mmHG Vent. Rate : 079 BPM Atrial Rate : 079 BPM P-R Int : 160 ms QRS Dur : 074 ms QT Int : 360 ms P-R-T Axes : 064 018 059 degrees QTc Int : 412 ms Normal sinus rhythm Normal ECG When compared with ECG of 06-OCT-2023 08:42, No significant change was found Confirmed by ALAYNA ANGEL, ANAYA ([id number]), editorial clerk JASON MILLER ([id number]) on 10/23/2023 2:08:34 PM Referred By: Darrin Gaviria Confirmed By:ANAYA CATALAN MD
--- NOTE | 2023-10-19 09:57 | EKG12_ITS ---
Test Reason : SOB Blood Pressure : / mmHG Vent. Rate : 072 BPM Atrial Rate : 072 BPM P-R Int : 154 ms QRS Dur : 074 ms QT Int : 370 ms P-R-T Axes : 055 012 047 degrees QTc Int : 405 ms Sinus rhythm with marked sinus arrhythmia Otherwise normal ECG Confirmed by ALAYNA ANGEL, ANAYA ([id number]), science editor JASON MILLER ([id number]) on 10/20/2023 7:19:58 AM Referred By: BRENDA Confirmed By:ANAYA CATALAN MD
--- NOTE | 2023-10-19 10:06 | EDS_ITS ---
HPI History of Present Illness Chief Complaint: Shortness of Breath Detail of Chief Complaint: Cute intermittent shortness of breath and cough Informant: patient and spouse/S.O. Onset/Context/Timing Onset: Today (Episode occurred at 0300.) Context: sudden and sleep Timing: Intermittent Quality: Positive for PND Current Severity: Gone Maximum Severity: Severe Worsened by: Coughing; Not Worsened By Exertion or Lying flat Relieved by: Nothing Associated Symptoms cough; Negative for rhinorrhea, post nasal drip, ear pain, fever, sore throat, subjective, chills or sweats Chest Pain: Positive for None Narrative Narrative: Patient is an 83-year-old woman with history of hypercholesterolemia who had a carotid endarterectomy performed by Dr. Gaviria on October 17. She was discharged in the hospital October 18. She has had 3 episodes where she is awakened abruptly from sleep with shortness of breath followed by cough. First episode occurred at 0. She denies history of congestive heart failure or coronary disease. Review of prior records indicates patient has calcification of coronary arteries noted on CAT scan. She also has history of hypertension which she denied and hypothyroidism. Patient presently does not feel short of breath. She had slight shortness of breath walking in to the emergency department. She denies fever, chills night sweats. Her cough is nonproductive. She denies rhinorrhea, congestion, postnasal drainage or sore throat. She denies history of VTE. She denies leg pain or swelling. She denies discoloration of her legs. She denies orthopnea. PE Risk Factors: Positive for Recent surgery; Negative for Cancer, OCP + Smoking + > 35, Prior DVT or PE, Recent immobilization or Recent travel Prior similar symptoms: No Recent Illness/Hospitalization: Yes [facility] Medical History Alcohol use Anxiety Arthritis Cardiology follow-up encounter Essential (primary) hypertension Generalized anxiety disorder GERD (gastroesophageal reflux disease) High cholesterol History of echocardiogram History of irregular heartbeat History of stress test Hypercholesterolemia Hypothyroid Migraine headache Thyroid disease Wears glasses Wears partial dentures Home Medications Lactobacillus rhamnosus GG 10 billion cell capsule (Culturelle) 1 cap PO DAILY 07/06/23 [History Last Taken Unknown] cholecalciferol (vitamin D3) 75 mcg (3,000 unit) tablet 5,000 unit PO DAILY 07/06/23 [History Last Taken Unknown] cinnamon bark 500 mg capsule (Cinnamon) 1,000 mg PO DAILY 07/06/23 [History Last Taken Unknown] coenzyme Q10 200 mg capsule (Co Q-10) 200 mg PO DAILY 07/06/23 [History Last Taken Unknown] famotidine 20 mg tablet (Acid Engineering Research Manager (famotidine)) 20 mg PO DAILY 07/06/23 [History Last Taken Unknown] magnesium 200 mg tablet 400 mg PO DAILY 07/06/23 [History Last Taken Unknown] multivitamin 1 tab PO DAILY 07/06/23 [History Last Taken Unknown] vitamin B complex-folic acid 0.4 mg tablet (Super B Maxi Complex) 1 tab PO DAILY 07/06/23 [History Last Taken Unknown] vitamins A,C,V-taed-dyidyn 4,296 mcg-226 mg-90 mg capsule (PreserVision AREDS) 1 cap PO BID 07/06/23 [History Last Taken Unknown] albuterol sulfate 2.5 mg/3 mL (0.083 %) solution for nebulization 2.5 mg continuous nebulization Q8H PRN cough 07/26/23 [History Last Taken Unknown] amitriptyline 10 mg tablet 10 mg PO BID 07/26/23 [History Last Taken Unknown] levothyroxine 88 mcg tablet 88 mcg PO DAILY 07/26/23 [History Last Taken Unknown] rosuvastatin 5 mg tablet 5 mg PO DAILY 08/16/23 [History Last Taken Unknown] perphenazine 2 mg tablet 2 mg PO BID 08/29/23 [History Last Taken Unknown] aspirin 81 mg tablet,delayed release 81 mg PO DAILY 09/14/23 [History Last Taken 10/16/23] ticagrelor 90 mg tablet (Brilinta) 90 mg PO Q12H #60 tabs 09/14/23 [Rx Last Taken 10/17/23] turmeric 100 mg-lyndsey 150 mg-olive 50 mg-oreg 150 mg-capryl capsule cap PO 09/14/23 [History Last Taken Unknown] krill oil 500 mg capsule 500 mg PO DAILY 10/04/23 [History Last Taken Unknown] Allergy/AdvReac Type Severity Reaction Status Date / Time Penicillins Allergy Severe Swelling Verified 10/19/23 09:34 bee venom protein (honey bee) Allergy Swelling Verified 10/19/23 09:34 Family History Grandmother CVA (cerebral vascular accident) Obesity Arthritis Uncle Diabetes Father Cancer Arthritis Obesity Brother Arthritis Alcoholism Surgical History H/O tubal ligation History of cholecystectomy History of hysterectomy Social History (Updated 10/19/23 @ 10:[address] Kulwinder Stewart MD) household members: spouse Smoking Status: Former smoker alcohol intake: current substance use type: does not use ROS ROS ED Constitutional Constitutional ED: Denies chills, fever(s) or sweats ENT ENT ED: Denies rhinorrhea or sore throat Cardiovascular Cardiovascular: Reports paroxysmal nocturnal dyspnea; Denies chest pain, orthopnea, palpitations or racing heartbeat Respiratory/Chest Respiratory/Chest: Reports cough, dyspnea, dyspnea on exertion and paroxysmal nocturnal dyspnea; Denies orthopnea or sputum Gastrointestinal Gastrointestinal: Denies abdominal pain, nausea or vomiting Genitourinary Genitourinary ED: Denies dysuria, hematuria or urinary frequency Musculoskeletal Musculoskeletal: Denies arthralgias, back pain or myalgias Integumentary Denies rash Endocrine Endocrinology: Denies cold intolerance or heat intolerance Hematologic/Lymphatic Hematologic/Lymphatic: Denies easy bleeding or easy bruising Allergic/Immunologic Allergic/Immunologic ED: Denies mouth swelling or tongue swelling EXAM Physical Exam Const Vital Signs: 10/19/23 09:34 10/19/23 10:32 10/19/23 11:00 Temperature 96.3 F L Temperature Source Temporal Pulse Rate 70 70 Respiratory Rate 20 H 16 Respiratory Effort Normal Respiratory Depth Normal Blood Pressure 172/79 H Blood Pressure Mean 110 Pulse Ox 93 97 Oxygen Delivery Method Room Air 10/19/23 12:00 10/19/23 13:00 Temperature Temperature Source Pulse Rate 81 Respiratory Rate 16 12 Respiratory Effort Respiratory Depth Blood Pressure 130/65 H Blood Pressure Mean 86 Pulse Ox 97 Oxygen Delivery Method Room Air Positive well nourished and well developed General Appearance ED: well developed and NAD; Negative for pallor HEENT Reports moist mucous membranes HEENT Narrative: Head is atraumatic and normocephalic. Ears are normal. Nares are patent without discharge. Posterior pharynx is normal. Patient has incision near the right clavicular region that is intact with slight bruising and no evidence of infection i.e. erythema, warmth, induration or fluctuance. Eyes PERRL and EOMs intact bilaterally General Eye ED: Negative for pale conjunctiva or scleral icterus Neck no lymphadenopathy, supple, no meningeal signs and no JVD Resp normal respiratory effort and clear to auscultation bilaterally Cardio regular rate, regular rhythm, S1 normal heart sound, S2 normal heart sound and no murmurs Back/Spine no CVA tenderness and normal to inspection Extremity Extremity Narrative: Given the slight pitting edema lower EXTR exam is normal. There is no asymmetry, swelling, discoloration, leg vein distention, palpable cords toes on the distribution of the deep venous system. General Extremety ED: Yes edema General Extremity: edema Neuro oriented x3, CN's II-XII intact bilaterally and no sensory deficits noted [place] Coma Scale: document GCS findings Spontaneous Obeys Commands Oriented 15 Sensorium / Orientation: alert Psych mental status grossly normal Thought Process: normal thought process Skin no wounds and skin turgor normal Skin Narrative: Surgical incision site healing without evidence on for General Skin Exam: Negative for jaundice or pallor MDM MDM MDM Narrative Medical decision making narrative: Diagnosis would include PE. Need to raise concern for cardiac ischemia in light of abnormal CT and the fact the patient was awakened abruptly with shortness of breath. Patient presently is on a baby aspirin and Brilinta. She is not on an ARYA inhibitor. To evaluate patient's presentation EKG, chest x-ray, and appropriate blood work was obtained which included troponin and D-dimer. History & Record Review Additional record(s) reviewed:: Prior inpatient record (Recommended HPI narrative) and Prior labs Lab Data Attestation: I reviewed the patient's lab results. Lab results narrative: CBC reveals mild anemia, which is chronic. Basic metabolic panel is unremarkable. D-dimer is normal. First troponin is normal at 9. Labs: Laboratory Results - last 24 hr 10/19/23 10/19/23 10:22 12:22 WBC 7.6 RBC 3.80 L Hgb 11.7 L Hct 35.4 L MCV 93.2 MCH 30.8 MCHC 33.1 RDW Std Deviation 44.4 H RDW Coeff of Kerrie 13.1 Plt Count 257 MPV 9.0 Immature Gran % (Auto) 0.400 Neut % (Auto) 62.6 Lymph % (Auto) 25.0 [place] % (Auto) 9.3 Eos % (Auto) 2.3 Baso % (Auto) 0.4 Absolute Neuts (auto) 4.7 Absolute Lymphs (auto) 1.89 Nucleated RBC % 0 D-Dimer Quant (PE/DVT) 0.37 Sodium 139 Potassium 3.7 Chloride 107 Carbon Dioxide 26.0 Anion Gap 6 BUN 17 Creatinine 0.72 Estim Creat Clear Calc 49.25 Est GFR (MDRD) Af Amer 100 Est GFR (MDRD) Non-Af 82 BUN/Creatinine Ratio 23.7 H Glucose 100 Calcium 9.1 Troponin I High Sens 9 9 Radiography Diagnostic Testing: Clinical Impression(s) from Imaging Studies Chest X-Ray 10/19/23 10:40 IMPRESSION: Findings suggestive of early infiltrate in the superior segment of the left lower lobe. Electronically Signed: Bora Rider MD at 11:00 EST , EKG Initial EKG: Attestation: I personally reviewed and interpreted this EKG as follows: Interpretation: Sinus Rhythm (Rate is 72 with significant respiratory variance. Parables 154 ms. QRS duration 74 ms. QT duration 170 ms. [place] is normal.) Management Discussion w/another healthcare provider: [facility] (Spoke with Dr. Darrin Gaviria's nurse practitioner, Ledy. She was informed of patient's history, physical diagnostic workup. She will speak with Dr. Gaviria. Awaiting call to determine disposition.) Treatment and Re-Evaluation :: Dr. Darrin Ferro's nurse practitioner did call back. Plan is to discharge to home. Discharge Plan Triage Chief Complaint: Shortness of Breath ED Provider: Kulwinder Stewart Dx/Rx/DC Orders Clinical Impression: Acute dyspnea, Coronary artery calcification seen on CT scan, Hypercholesterolemia, Paroxysmal cough, Status post carotid endarterectomy Instructions: ED Dyspnea Prescriptions: No Action famotidine [Acid Engineering Research Manager (famotidine)] 20 mg tablet 20 mg PO DAILY multivitamin Tablet 1 tab PO DAILY PreserVision AREDS 4,296 mcg-226 mg-90 mg capsule 1 cap PO BID cholecalciferol (vitamin D3) 75 mcg (3,000 unit) tablet 5,000 unit PO DAILY cinnamon bark [Cinnamon] 500 mg capsule 1,000 mg PO DAILY vitamin B complex-folic acid [Super B Maxi Complex] 0.4 mg tablet 1 tab PO DAILY coenzyme Q10 [Co Q-10] 200 mg capsule 200 mg PO DAILY Culturelle 10 billion cell capsule 1 cap PO DAILY magnesium 200 mg tablet 400 mg PO DAILY levothyroxine 88 mcg tablet 88 mcg PO DAILY amitriptyline 10 mg tablet 10 mg PO BID albuterol sulfate 2.5 mg /3 mL (0.083 %) solution for nebulization 2.5 mg continuous nebulization Q8H PRN (Reason: cough) Patient Comments: USE 1 VIAL IN NEBULIZER THREE TIMES DAILY perphenazine 2 mg tablet 2 mg PO BID aspirin 81 mg tablet,delayed release (DR/EC) 81 mg PO DAILY Brilinta 90 mg tablet 90 mg PO Q12H Qty: 60 0RF krill oil 500 mg capsule 500 mg PO DAILY rosuvastatin 5 mg tablet 5 mg PO DAILY Primary Care Provider: Richy Blount Referrals: Richy Blount MD [Primary Care Provider] - 3-5 Days Disposition Disposition: Home, Self Care
[2023-10-19 10:31] LABS: Absolute Lymphocyte Count 1.89 X10^3/uL (0.83-4.51); Absolute Neutrophil Count 4.7 X10^3/uL (2.0-7.7); Basophil# 0.03 X10^3/uL; Basophil% 0.4 % (0-1); Eosinophil# 0.17 X10^3/uL; Eosinophils% 2.3 % (0-5); Hematocrit 35.4 % (37-47); Hemoglobin 11.7 g/dL (12.0-15.0); Lymphocyte # 1.89 X10^3/ul (0.83-4.51); Mean Corp Hgb Conc 33.1 g/dL (32-36); Mean Corpuscular Hgb 30.8 pg (27.0-32.0); Mean Corpuscular Volume 93.2 fL (81-99); Monocyte% 9.3 % (0-10); NRBC Flagged by Analyzer 0 % (0-5); Neutrophil # 4.73 X10^3/uL (2.7-7.7); Neutrophil % 62.6 % (47-70); Platelet Count 257 K/mm3 (150-450); RBC Distribution Width CV 13.1 % (11.6-14.6); RBC Distribution Width SD 44.4 fl (35.1-43.9); White Blood Count 7.6 K/mm3 (4.4-11.0)
--- NOTE | 2023-10-19 10:40 | RAD_ITS ---
STUDY: X-RAY CHEST REASON FOR EXAM: Female, 83 years old. Increasing shortness of breath. TECHNIQUE: PA and lateral views of the chest. COMPARISON: None. FINDINGS: Hyperinflation. Minimal increased markings in the superior segment of the left lower lobe suggestive of focal infiltrate. There is no demonstrated pleural abnormality. Normal size heart. Normal mediastinum and linnea. Normal visualized pulmonary arteries. Normal visualized aortic arch and descending thoracic aorta. There are degenerative changes of the visualized thoracic spine. Normal visualized ribs, clavicles, and shoulders. There is no demonstrated abnormality of the visualized soft tissue structures of the upper abdomen. RAD/Chest PA and Lateral IMPRESSION: Findings suggestive of early infiltrate in the superior segment of the left lower lobe. Electronically Signed: Bora Rider MD at 11:00 EST ,
[2023-10-19 10:44] LABS: Anion Gap 6 (5-15); BUN 17 mg/dL (7-18); BUN/Creat Ratio 23.7 RATIO (10-20); Calcium,Total 9.1 mg/dL (8.5-10.1); Chloride 107 mmol/L (98-107); Creatinine, Serum 0.72 mg/dL (0.55-1.02); EST Glomerular Filtration Rate 82 mL/min (>60); Est Glom Filt Rate - Afr Amer 100 mL/min (>60); Estimated Creatinine Clearance 49.25 ml/min; Glucose 100 mg/dL (74-106); Potassium 3.7 mmol/L (3.5-5.1); Sodium Level 139 mmol/L (136-145); Troponin-I HS 9 pg/mL (3.0-54.0)
[2023-10-19 10:50] LABS: D-Dimer Quantitative (DVT/PE) 0.37 FEU/ug/m (0.27-0.49)
[2023-10-19 11:00] VITALS: PULSE 70; RESP 16; O2SAT 97
[2023-10-19 12:00] VITALS: RESP 16
[2023-10-19 13:00] VITALS: BP 130/65; PULSE 81; RESP 12; O2SAT 97
[2023-10-19 13:01] LABS: Troponin-I HS 9 pg/mL (3.0-54.0)
[2023-10-19 14:36] VITALS: BP 136/73; PULSE 81
== END 2023-10-19 14:36 | disposition home or self-care (01) ==
PROVIDERS: Emergency Provider Emergency Medicine; PCP Family Medicine; Visit Provider Emergency Medicine
DX: R06.00 Dyspnea, unspecified (principal); I10 Essential (primary) hypertension; I25.10 Atherosclerotic heart disease of native coronary artery without angina pectoris; Z87.891 Personal history of nicotine dependence; K21.9 Gastro-esophageal reflux disease without esophagitis; E03.9 Hypothyroidism, unspecified; Z79.899 Other long term (current) drug therapy; Z79.82 Long term (current) use of aspirin; Z90.49 Acquired absence of other specified parts of digestive tract; Z90.710 Acquired absence of both cervix and uterus; R05.9 Cough, unspecified; E78.00 Pure hypercholesterolemia, unspecified; Z98.890 Other specified postprocedural states
CPT/HCPCS: 71046; 80048; 84484; 85025; 85379; 93005; 99284; A4216

== ENCOUNTER → 2023-11-02 | Outpatient (CLI) | payer MEDICARE, BC, SELFPAY ==
[2023-11-02 13:51] LABS: Thyroid Stim Hormone (TSH) 0.03 uIU/mL (0.358-3.74)
== END | disposition home or self-care (01) ==
LOC: MTLAB 09:31
PROVIDERS: PCP Family Medicine; Referring Provider Family Medicine; Visit Provider Family Medicine
DX: E03.9 Hypothyroidism, unspecified (principal)
CPT/HCPCS: 36415; 84443

== ENCOUNTER → 2023-11-08 | Outpatient (CLI) | payer MEDICARE, BC, SELFPAY ==
--- NOTE | 2023-11-08 12:56 | CDU_ITS ---
Reason For Study: s/p Rt TCAR Rt. Velocities/BP Lt. Velocities/BP Prox CCA 110/14 cm/sec. Prox CCA 99/16 cm/sec. Rt CCA mid; pre stent: 56/12 cm/s Mid CCA 68/13 cm/sec. Rt CCA distal; prox stent: 44/12 cm/s Dist CCA 67/16 cm/sec. Rt ICA prox: 61/14 cm/s Prox ICA 137/35 cm/sec. Rt ICA mid; mid stent: 55/14 cm/s Mid ICA 109/25 cm/sec. Rt ICA distal; distal stent: 42/12 cm/s Dist ICA 88/29 cm/sec. Rt ICA distal; post stent: 71/18 cm/s. Lt. ICA/CCA = 2.01. Prox ECA 103/8 cm/sec. Prox ECA 88/10 cm/sec. Rt. Vert. 56/11 cm/sec. Lt. Vert. 72/18 cm/sec. Right Extracranial There is heterogeneous, irregular atherosclerotic plaque noted in the right common carotid artery. Stent noted Rt ICA. There is no significant atherosclerotic plaque noted in the right external carotid artery. Antegrade flow is noted in the right vertebral artery. Left Extracranial There is heterogeneous, irregular atherosclerotic plaque noted in the left common carotid artery. There is heterogeneous, irregular atherosclerotic plaque noted in the left internal carotid artery. The atherosclerotic plaque causes acoustic shadowing. There is heterogeneous, irregular atherosclerotic plaque noted in the left external carotid artery. Antegrade flow is noted in the left vertebral artery. Procedure Carotid Duplex [id number]. This is a Carotid Duplex examination using B-mode, color flow and specral Doppler. Exam performed in department. VL/Carotid Duplex Ultrasound Interpretation Summary Mild (<50%) stenosis right extracranial internal carotid. Moderate (50-69%) stenosis left extracranial internal carotid. Limited due to c alcific shadowing Patent and antegrade vertebrals bilaterally. Ordering Physician: Ledy Toussaint Referring Physician: Richy Blount Performed By: Sara Workman, IKER, RVT
== END | disposition home or self-care (01) ==
LOC: CVS 12:55
PROVIDERS: PCP Family Medicine; Referring Provider Physician Assistant; Visit Provider Physician Assistant
DX: I65.21 Occlusion and stenosis of right carotid artery (principal); I77.9 Disorder of arteries and arterioles, unspecified; Z48.812 Encounter for surgical aftercare following surgery on the circulatory system
CPT/HCPCS: 93880

== ENCOUNTER → 2023-12-18 | Outpatient (CLI) | payer MEDICARE, BC, SELFPAY ==
[2023-12-18 11:58] LABS: Thyroid Stim Hormone (TSH) 3.97 uIU/mL (0.358-3.74)
== END | disposition home or self-care (01) ==
LOC: LAB 09:45
PROVIDERS: PCP Family Medicine; Referring Provider Family Medicine; Visit Provider Family Medicine
DX: E03.9 Hypothyroidism, unspecified (principal)
CPT/HCPCS: 36415; 84443

== ENCOUNTER → 2024-02-13 | Outpatient (CLI) | payer MEDICARE, BC, SELFPAY ==
[2024-02-13 13:05] LABS: T4 Free Direct 1.19 ng/dL (0.76-1.46); Thyroid Stim Hormone (TSH) 1.07 uIU/mL (0.358-3.74)
== END | disposition home or self-care (01) ==
LOC: MFPLAB 10:05
PROVIDERS: PCP Family Medicine; Visit Provider Family Medicine
DX: E03.9 Hypothyroidism, unspecified (principal)
CPT/HCPCS: 36415; 84439; 84443

== ENCOUNTER → 2024-02-22 | Outpatient (CLI) | payer MEDICARE, BC, SELFPAY ==
--- NOTE | 2024-02-22 08:52 | BI_ITS ---
MAMMOGRAPHY - BILATERAL SCREENING REASON FOR EXAM: Female, 83 years old. Routine annual screening examination. PERTINENT HISTORY: Non-contributory. TECHNIQUE: Digital bilateral breast naveed (3D mammographic acquisition) in the CC and MLO projections. 2-D mediolateral oblique (MLO) and craniocaudad (CC) views of both breasts were obtained. CAD: Full Field Digital Mammography with Computer Added Detection was performed. COMPARISON: Comparison is made with prior study dated March 28, 2022 and July 17, 2013. FINDINGS: Breast Composition: The breasts are heterogeneously dense, which may obscure small masses. There are no dominant masses or suspicious calcifications. Stable scattered bilateral macrocalcifications. No other significant abnormalities are identified. There has been no significant change since the prior study. BI/SCRN MAMM (CAD)W/NAVEED BILAT IMPRESSION: Stable bilateral screening mammogram. Yearly follow-up mammogram recommended. (A) ASSESSMENT CATEGORY: BIRADS Category 2: Benign. A letter regarding these results will be sent to the patient by the facility within 30 days. Approximately 10% of breast cancers are not detected by mammography. A normal mammogram should not delay biopsy of a clinically suspicious abnormality. [id number] Electronically Signed: Bora Rider MD at 10:40 EDT ,
== END | disposition home or self-care (01) ==
LOC: OPBI 08:50
PROVIDERS: PCP Family Medicine; Referring Provider Family Medicine; Visit Provider Family Medicine
DX: Z12.31 Encounter for screening mammogram for malignant neoplasm of breast (principal)
CPT/HCPCS: 77063; 77067

== ENCOUNTER → 2024-04-17 | Outpatient (CLI) | payer MEDICARE, BC, SELFPAY ==
--- NOTE | 2024-04-17 08:39 | CDU_ITS ---
Reason For Study: S/P Rt TCAR Rt. Velocities/BP Lt. Velocities/BP Prox CCA 55.9/6.5 cm/sec. Prox CCA 105.8/25.6 cm/sec. Mid CCA, prox to stent, 54.4/12.6 Mid CCA 75.1/15.7 cm/sec. cm/sec. Dist CCA 81.7/17.9 cm/sec. Dist CCA, prox stent, 55.6/10.2 cm/sec. Prox ICA 135.7/35.3 cm/sec. Prox ICA, mid stent, 55.3/15.2 cm/sec. Mid ICA 119.1/32.1 cm/sec. Mid ICA, distal stent, 81.7/13.5 cm/sec. Dist ICA 106.8/24.4 cm/sec. Lt. ICA/CCA = 1.81. Dist ICA, distal to stent, 98.3/18.2 Prox ECA 99.8/7.1 cm/sec. cm/sec. Lt. Vert. 68.1/15.2 cm/sec. Rt. ICA/CCA = 1.81. Prox ECA 201.4/7.4 cm/sec. Rt. Vert. 58.6/14.6 cm/sec. Right Extracranial There is heterogeneous, irregular atherosclerotic plaque noted in the right common carotid artery. There is heterogeneous, irregular atherosclerotic plaque noted in the right internal carotid artery. Stent noted in the right CCA distal - ICA mid. There is intimal thickening but no significant atherosclerotic plaque noted in the right external carotid artery. Antegrade flow is noted in the right vertebral artery. Left Extracranial There is heterogeneous, irregular atherosclerotic plaque noted in the left common carotid artery. There is heterogeneous, irregular atherosclerotic plaque noted in the left internal carotid artery. The atherosclerotic plaque causes acoustic shadowing. There is heterogeneous, irregular atherosclerotic plaque noted in the left external carotid artery. Antegrade flow is noted in the left vertebral artery. Procedure Carotid Duplex [id number]. This is a Carotid Duplex examination using B-mode, color flow and specral Doppler. Exam performed in department. VL/Carotid Duplex Ultrasound Interpretation Summary Mild (<50%) stenosis right extracranial internal carotid. Moderate (50-69%) stenosis left extracranial internal carotid. Patent and antegrade vertebrals bilaterally. Ordering Physician: Ledy Toussaint Referring Physician: Richy Blount Performed By: Umu Corado RVT
== END | disposition home or self-care (01) ==
LOC: CVS 08:38
PROVIDERS: PCP Family Medicine; Referring Provider Physician Assistant; Visit Provider Physician Assistant
DX: Z95.828 Presence of other vascular implants and grafts (principal); Z48.812 Encounter for surgical aftercare following surgery on the circulatory system; I77.9 Disorder of arteries and arterioles, unspecified
CPT/HCPCS: 93880

== ENCOUNTER 2024-07-02 10:30 | Outpatient (RCR) | payer MEDICARE, BC, SELFPAY ==
--- NOTE | 2024-06-18 13:17 | HP.PTEVAL_ITS ---
Patient's Visit Information Visit Information Visit Information: SCOTTY LOERA is a 84 year old F referred to Physical Therapy by Richy Blount MD with a diagnosis of Vestibular/vertigo. Date of Evaluation: 06/18/24 Physical Therapist: PÉREZ Ayala Visit Plan Frequency: 1x/Week Duration: 3 Weeks Plan: 1X/ week for 3 weeks for R Eply and possible testing of balance if need be. Subjective Subjective: In March she went to get up one morning and the room was spinning. When she goes to lay down or when goes to look up. She went to see a sub Dr she was told she was depressed and she then made an appt with her Dr and he said that she had crystals and told her to see PT. She has allergies and this morning she woke up with itchy and burning eyes but she used a new eye cream and she is very sensitive to things. When she got up this morning she had the spinning this morning and it lasted about 1 minute and then it goes away. She feels like she might be a little unsteady at times but catches herself. Objective Objective: + R Hallpike with torsional nystagmus that lasted approx 20 seconds. Treated with R EPLY. Re-tested R Hallpike and was negative for nystagmus or dizziness Pt felt off and a little nauseated walking out but reported that she was fine to walk out to her car and drive. She will call in before next appt on Monday if she does not feel any better Balance/Special Test Scores Lower Extremity Functional Score: 26 Goals Goal 1:: I HEP Goal Time Frame: 2-4 Weeks Goal 2:: Abolish dizziness with laying down or looking up Rehabilitation Potential Rehabilitation Potential: Good Anticipated Interventions Patient/Client Instruction: Educate patient on: Condition and Plan of Care For the Purpose of:: To improve ability to perform ADL's, To increase tolerance to activity/condition/position, To improve performance and independence with ADL's, To improve gait and locomotor functions, To improve health of tissue, To increase flexibility/ROM, To improve endurance and To improve safety with gait Therapeutic Exercise to Include: Balance training, Postural training and Flexibilty training For the Purpose of:: To improve gait and locomotor functions Functional Training to Include: Gait training For the Purpose of:: To improve gait and locomotor functions Text: Thank you for the opportunity to evaluate your patient. For Medicare and Medicare HMO plans, please review the plan of care and approve it. It will need to be FAXED BACK to us at [phone] for Medicare purposes. For Medicare only, by signing this I certify the plan of care. Please let me know if there are questions or concerns regarding this plan of care. Physician Sig nature: Date:
--- NOTE | 2024-07-02 11:04 | HP.PTDCSUM ---
Discharge Summary D/C summary: It has been my pleasure to treat SCOTTY LOERA referred by Richy Blount MD, with the diagnosis of Vestibular/vertigo for a total of 3 visit(s). Discharge Date: 07/02/24 Please see the following information for a summary of their discharge status. Subjective Subjective: It is as bad as it ever was. It is when she lays down. She does feel that she is better getting out of bed. She has no issue while packing up her house Overall Improvement % Improvement: 50 Objective Objective/Function: Questionable R Lyle was + for dizziness for like 1 second. Treated with Eply. Retested Carroll Alvarenga and it was the same as the first time Instructed pt with picture of Dallin Rojo exercises to beging tomm. 50 Goals Goal 1:: I HEP Goal Progress: Goal Met Goal 2:: Abolish dizziness with laying down or looking up Goal Progress: Progressing Plan Plan: DC PT to HEP )pt is moving to [place] this weekend) D/C Information Discharge Comments: DC PT to HEP (pt is moving to [place]) d/c sentence: If there are questions or concerns regarding this patient's physical therapy, please feel free to call me at [phone]. Thank you for the referral of this patient. Sincerely, Radha Nelson, MPT Balance/Gait/Functional tests Balance/Special Test Scores Lower Extremity Functional Score: 26 Improvement % Improvement: 50
== END 2024-07-02 19:00 | disposition home or self-care (01) ==
LOC: PT 10:30
PROVIDERS: PCP Family Medicine; Referring Provider Family Medicine; Visit Provider Family Medicine
DX: R42 Dizziness and giddiness (principal)
CPT/HCPCS: 97161; 97530